=== PATIENT | male | born 1995 | race Two or more races ===

== ENCOUNTER 2024-11-29 19:43 | Emergency (ER) | payer SELFPAY ==
[2024-11-29 19:56] VITALS: BP 146/80; PULSE 119; TEMP 37.2; O2SAT 96
--- NOTE | 2024-11-29 20:02 | CT_ITS ---
The [address] [address] Patient Name: SARA HARRIS MRN: [id number] date: 1995 Sex: M Assigned Patient Location: ER Current Patient Location: .MAIN Accession/Order Number: [id number] Exam Date: 11/29/2024 20:43 Report Date: 11/29/2024 20:53 At the request of: VERONICA FALK Procedure: CT soft tissue neck w con CT Neck with contrast TECHNIQUE: Axial imaging with 2-D reconstruction. 100cc of Omnipaque [address] exam was performed using one or more the following dose reduction techniques: Automated exposure control, adjustment of the MA and/or Kv according to patient size, or use of the iterative reconstruction technique. HISTORY: Sore throat COMPARISON:None ORAL CAVITY: ANTERIOR TWO THIRDS OF THE TONGUE: Unremarkable ROOF OF THE MOUTH: Unremarkable BUCCAL CAVITY: Unremarkable FLOOR OF THE MOUTH: Unremarkable DENTITION: Unremarkable TONSILS: Enlargement of the left tonsil.. Tonsillar hypoechoic area measuring up to 2 cm likely representing peritonsillar abscess. Left lateral pharyngeal and laryngeal soft tissue swelling. Deviation of the pharynx and trachea to the right. PHARYNX: NASOPHARYNX: Unremarkable OROPHARYNX: Unremarkable TONGUE BASE: Unremarkable HYPOPHARYNX: Unremarkable EPIGLOTTIS: The epiglottis is normal. LARYNX: FALSE CORD: Unremarkable VESTIBULE: Unremarkable TRUE CORD: Unremarkable THYROID CARTILAGE: Unremarkable CRICOID CARTILAGE: Unremarkable NECK SPACES: VISCERAL SPACE: Unremarkable CAROTID SPACE: Unremarkable RETROPHARYNGEAL SPACE: Unremarkable POSTERIOR CERVICAL SPACE: Unremarkable PREVERTEBRAL SPACE: Unremarkable CAROTID CIRCULATION AND JUGULAR VEINS No vascular abnormality identified. ADENOPATHY: Left anterior cervical adenopathy measuring up to 13 mm in short axis dimension. SALIVARY GLANDS: PAROTID GLANDS: Unremarkable SUBMANDIBULAR GLANDS: Unremarkable SUBLINGUAL GLANDS: Unremarkable THYROID GLAND: No thyroid nodule identified. BONES:Unremarkable CT/CT soft tissue neck w con IMPRESSION: 2 cm hypodense collection left peritonsillar region concerning for peritonsillar abscess. Soft tissue edema in the left nasopharynx, oropharynx and hypopharynx extending to the larynx with deviation of the pharynx and the trachea to the right. Patent airway. Left anterior cervical lymphadenopathy likely reactive. No extension into the superior mediastinum. No soft tissue air. Impression dictated by: Marko East M.D. 11/29/2024 8:53 PM Dictation Location: [place] [address] Electronically authenticated by: [id number] Y Date: 11/29/2024 20:53
--- NOTE | 2024-11-29 20:06 | ED.GENADUL1 ---
HPI HPI - General Adult General Chief complaint: Upper Respiratory Infection Stated complaint: THROAT PAIN - NO VOICE Time Seen by Provider: 11/29/24 19:55 Source: patient Mode of arrival: walk-in Limitations: no limitations History of Present Illness HPI narrative: cc -left ear pain and sore throat with difficulty opening his mouth Patient presents with 2 days of worsening sore throat to the point where he has difficulty swallowing small pills and swallowing liquids. He complains of a lot of pain across the upper anterior neck as well as into the throat along with pain in the left ear. He is unable to open his mouth fully. He admits to some fever at home but no chills. No systemic symptoms or GI symptoms such as nausea, vomiting or diarrhea. No GI symptoms. No cough. No chest pain or shortness of breath. He denies any known ill exposure or travel history. He speaks very limited Jamaican and therefore an food service utility worker was used to obtain history of present illness, past medical history, medications, allergies and past surgical history Related Data Home Medications ?Medication ?Instructions ?Recorded ?Confirmed No Known Home Medications 11/29/24 11/29/24 Allergies Allergy/AdvReac Type Severity Reaction Status Date / Time No Known Drug Allergies Allergy Verified 11/29/24 19:55 PFSH PFSH Social History Little interest or pleasure in doing things: not at all Feeling down, depressed, or hopeless: not at all Exam Narrative Exam Narrative: Nurses notes and vital signs reviewed and patient is not hypoxic. afebrile General: Well-appearing and in no apparent distress. Skin: Warm, dry, no pallor noted. No rash. Head: Normocephalic, atraumatic. Neck: Supple, no meningismus. Diffuse anterior upper cervical lymphadenopathy with marked tenderness. I do not detect any erythema or warmth but he has quite a bit of lymphadenopathy and swelling Eye: Pupils are equal, round and EOMI. No scleral icterus. Ears, Nose, Mouth, and Throat: Left TM is erythematous with injection and retrotympanic fluid. Right TM is normal and right EAC is clear. He has mild trismus. Very limited ability to open his mouth. I used a tongue depressor to visualize the posterior oropharynx, which is markedly swollen, erythematous with left tonsillar exudate. I do not see a midline variation of the uvula but it is markedly swollen, as is the left tonsil. No nasal mucosal hypertrophy. Oral mucosa is moist Cardiovascular: Tachycardia without murmur. Respiratory: No accessory muscle use or respiratory distress. Lungs are clear to auscultation, no wheezing, rales or rhonchi Musculoskeletal: normal ROM Neurological: A&O x4. No cranial nerve dysfunction observed. No truncal ataxia. Moves all extremities. Sensation intact. Psychiatric: Cooperative and interactive. Normal mood and affect. Constitutional Vital Signs, click to edit/add: Last Vital Signs Temp 98.3 F 11/30/24 01:00 Pulse 93 H 11/30/24 01:00 Resp 18 11/30/24 01:00 BP 104/63 11/30/24 01:00 Pulse Ox 97 11/30/24 01:00 O2 Del Method Room Air 11/29/24 19:56 Course Vital Signs Vital signs: Vital Signs Temperature 98.9 F 11/29/24 19:56 Pulse Rate 119 H 11/29/24 19:56 Respiratory Rate 19 11/29/24 19:56 Blood Pressure 146/80 H 11/29/24 19:56 Pulse Oximetry 96 11/29/24 19:56 Oxygen Delivery Method Room Air 11/29/24 19:56 Temperature 98.3 F 11/30/24 01:00 Pulse Rate 93 H 11/30/24 01:00 Respiratory Rate 18 11/30/24 01:00 Blood Pressure 104/63 11/30/24 01:00 Pulse Oximetry 97 11/30/24 01:00 Oxygen Delivery Method Room Air 11/29/24 19:56 Medical Decision Making [facility] Narrative Medical decision making narrative: Video food service utility worker had to be used in order to obtain HPI, PMH, associated relative history as well as coordinate for the physical exam and explain what the plan was for the patient's complaint and subsequent diagnosis. Patient presents with 2+ days of sore throat with pain in left ear. It has progressed to the point where he is barely able to open his mouth and has pain when attempting to swallow even liquids. Physical exam is concerning for acute peritonsillar abscess as well as submandibular extension of his infection -i.e., Javy's angina. Peripheral IV ordered to be established and blood drawn and sent for testing. Patient was ordered to receive IV Toradol, IV Solu-Medrol and IV clindamycin 900 mg. He was ordered to undergo CT scanning of the soft tissue of the neck with IV contrast. White blood cell count elevated at 18.5 the patient has a left shift. BMP is notable only for a slightly increased creatinine at 1.38. Glucose is also minimally elevated at 117. Electrolytes are normal. BUN is normal. According to the radiologist, the CT reveals a 2 cm area concerning for peritonsillar abscess and there is deviation of the pharynx and trachea to the right with soft tissue edema in the left nasopharynx, oropharynx and hypopharynx extending to the larynx. Left anterior cervical of adenopathy is also noted. No extension into the superior mediastinum. No soft tissue air. Call placed to [facility] -to discuss transfer. I spoke with the on-call ENT -Dr. Aguirre -who agreed to be a jury consultant on this case. I also spoke with the on-call black powder glazing operator -Dr. Garcia -who accepted the patient's transfer to the hospitalist service, ICU placement, for further evaluation and care. The patient was agreeable to transfer to [facility] and arrangements were made for his transport by ambulance service, for airway management and support, despite the fact that he is feeling better, still able to control his secretions, without any respiratory distress or pulse ox decreased, and better able to phonate after ED treatment. He was stable for transfer at the time of ambulance departure. Lab Data Lab results reviewed: Yes I reviewed the patient's lab results Labs: Lab Results 11/29/24 Range/Units 20:20 WBC 18.5 H (4.0-11.0) 10^3/uL RBC 5.30 (4.70-6.10) 10^6/uL Hgb 16.0 (14.0-18.0) g/dL Hct 47.2 (42.0-54.0) % MCV 89.1 (80.0-94.0) fL MCH 30.2 (25.9-34.0) pg MCHC 33.9 (29.9-35.2) g/dL RDW 12.8 (11.0-15.0) % Plt Count 171 (150-450) 10^3/uL MPV 9.9 (9.5-13.5) fL Seg Neuts % (Manual) 83.0 H (43.0-75.0) Lymphocytes % (Manual) 8.0 L (20.5-60.0) % Atypical Lymphs % (Man) 3.0 % Monocytes % (Manual) 8.0 (1.7-12.0) % Eosinophils % (Manual) 0.0 L (0.9-7.0) % Basophils % (Manual) 0.0 L (0.2-2.0) % Neutrophils # (Manual) 15.35 H (1.4-6.5) 10^3/uL Lymphocytes # (Manual) 1.48 (1.20-3.80) 10^3/uL Abs Atypical Lymphs Man 0.55 Monocytes # (Manual) 1.48 H (0.30-0.80) 10^3/uL Eosinophils # (Manual) 0.00 (0.00-0.70) 10^3/uL Basophils # (Manual) 0.00 (0.00-0.10) 10^3/uL Sodium 137 (136-145) mmol/L Potassium 3.9 (3.5-5.1) mmol/L Chloride 101 (98-107) mmol/L Carbon Dioxide 28.1 (21.0-32.0) mmol/L Anion Gap 11.8 BUN 15.0 (7.0-18.0) mg/dL Creatinine 1.38 H (0.70-1.30) mg/dL Est GFR ( Amer) >60 (>=60 mL/min/1.73m^2) Est GFR (Non-Af Amer) >60 (>=60 mL/min/1.73m^2) BUN/Creatinine Ratio 10.9 Glucose 117 H (74-106) mg/dL Calcium 8.9 (8.5-10.1) mg/dL Imaging Data ct soft tissue neck: Radiologist's impression: ITS Impressions Soft Tissue Neck CT 11/29/24 20:02 IMPRESSION: 2 cm hypodense collection left peritonsillar region concerning for peritonsillar abscess. Soft tissue edema in the left nasopharynx, oropharynx and hypopharynx extending to the larynx with deviation of the pharynx and the trachea to the right. Patent airway. Left anterior cervical lymphadenopathy likely reactive. No extension into the superior mediastinum. No soft tissue air. Impression dictated by: Marko East M.D. 11/29/2024 8:53 PM Dictation Location: [place] Electronically authenticated by: [id number] Y Date: 11/29/2024 20:53 Critical Care Time Critical Care Time Total Critical Care Time: 40 Attestation: Critical Care Time: 40 minutes, critical care time is separate from any procedures that are performed. The following was considered in the determination of critical care but not limited to the level medical decision-making, intensive cardiac and/or respiratory monitor, frequent vital sign monitoring, evaluation of laboratory studies, evaluation of a radiographic studies, oxygen monitoring and constant monitoring. Discharge Plan Discharge Chief Complaint: Upper Respiratory Infection Clinical Impression: Peritonsillar abscess, Acute left otitis media Patient Disposition: [facility] Time of Disposition Decision: 21:10 Discharge Date/Time: 11/30/24 01:07
--- NOTE | 2024-11-29 20:13 | PC.NURSE ---
Pt presents to ER for sore throat and left ear pain x 2 days Pt is Azeri speaking - educational sign language interpreter used Pt feels extreme pain with palpation down the neck and visualization of inner ear - pt unable to open his mouth far for exam Pt states he has had some fevers and has been taking Tylenol with no relief Pt states he cannot swallow pills and is only drinking small amounts due to pain educational sign language interpreter utilized for Dr. Salinas to asses patient as well as this nurse and to inform patient of the care plan Pt verbalized understanding and denied further needs or questions at this time
[2024-11-29] MEDS: KETOROLAC TROMETHAMINE 30 MG/ML VIAL IVP (20:25)
[2024-11-29] MEDS: METHYLPREDNISOLONE SOD SUCC PF 125 MG/2 ML VIAL IVP (20:25)
[2024-11-29 20:26] LABS: Hematocrit 47.2 % (42.0-54.0); Hemoglobin 16.0 g/dL (14.0-18.0); Mean Corpuscular HGB Conc 33.9 g/dL (29.9-35.2); Mean Corpuscular Hemoglobin 30.2 pg (25.9-34.0); Mean Corpuscular Volume 89.1 fL (80.0-94.0); Platelet Count 171 10^3/uL (150-450); Red Blood Count 5.30 10^6/uL (4.70-6.10); White Blood Count 18.5 10^3/uL (4.0-11.0)
[2024-11-29 20:37] LABS: Anion Gap 11.8; Blood Urea Nitrogen 15.0 mg/dL (7.0-18.0); Calcium 8.9 mg/dL (8.5-10.1); Carbon Dioxide 28.1 mmol/L (21.0-32.0); Chloride 101 mmol/L (98-107); Estimated GFR (African America >60 (>=60 mL/min/1.73m^2); Estimated GFR (Non-African Ame >60 (>=60 mL/min/1.73m^2); Glucose 117 mg/dL (74-106); Potassium 3.9 mmol/L (3.5-5.1); Sodium 137 mmol/L (136-145)
[2024-11-29 20:47] LABS: Atypical Lymphocytes % Manual 3.0 %; Atypical Lymphocytes Abs Man 0.55; Basophils Abs Manual 0.00 10^3/uL (0.00-0.10); Basophils Percent Manual 0.0 % (0.2-2.0); Eosinophils Absolute Manual 0.00 10^3/uL (0.00-0.70); Eosinophils Percent Manual 0.0 % (0.9-7.0); Lymphocytes Absolute Manual 1.48 10^3/uL (1.20-3.80); Lymphocytes Percent Manual 8.0 % (20.5-60.0); Monocytes Absolute Manual 1.48 10^3/uL (0.30-0.80); Monocytes Percent Manual 8.0 % (1.7-12.0); Segmented Neut Absolute Manual 15.35 10^3/uL (1.4-6.5); Segmented Neutrophils % Manual 83.0 (43.0-75.0)
[2024-11-29] MEDS: CLINDAMYCIN PHOSPHATE/D5W 900 MG/50 ML PREMIX 100 MG IV (20:48)
[2024-11-29] MEDS: 0.9 % SODIUM CHLORIDE 1,000 ML 999 ML IV (20:49)
[2024-11-29 22:42] VITALS: BP 119/71; PULSE 96; TEMP 37; O2SAT 96
[2024-11-29 23:32] VITALS: BP 101/56; PULSE 94; O2SAT 95
--- NOTE | 2024-11-29 23:58 | PC.NURSE ---
this patient lying awake on his right side on the bed video chat with a female. this patient voices no concerns or needs and shows no signs of distress
[2024-11-30 00:01] VITALS: BP 123/79; PULSE 80; O2SAT 95
[2024-11-30 00:36] VITALS: BP 107/63; PULSE 95; TEMP 36.7; O2SAT 95
[2024-11-30 01:00] VITALS: BP 104/63; PULSE 93; TEMP 36.8; O2SAT 97
--- NOTE | 2024-11-30 01:08 | PC.NURSE ---
superior arrives i gave this crew all of the patient's paperwork and i gave them a patient's report. this patient took his 1 black back pack with and an his cell phone and traveling representative. ems crew did use our camp coordinator to talk to this patient prior to leaving this er dept.Arsen from [employer] took care of this patient's truck.
== END 2024-11-30 01:07 | disposition short-term general hospital (02) ==
PROVIDERS: Emergency Provider Emergency Medicine
DX: J36 Peritonsillar abscess (principal); H66.92 Otitis media, unspecified, left ear
CPT/HCPCS: 36415; 70491; 80048; 85007; 85027; 96365; 96375; 99285; J0736; J1885; J2919; Q9967